=== PATIENT | male | born 2000 | race Hispanic/Latino ===

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

== ENCOUNTER 2020-12-18 21:07 | Emergency (ER) | payer OTHER, SELFPAY | END 2020-12-18 21:30 | disposition home or self-care (01) | LOC: BURERS 21:07 | DX: F43.0 Acute stress reaction (principal) | CPT/HCPCS: 93005 ==